=== PATIENT | female | born 1960 | race Caucasian/White ===

== ENCOUNTER 2023-05-13 16:04 | Outpatient (RCR) | payer BC, SELFPAY | END 2023-05-13 23:59 | disposition home or self-care (01) | LOC: RPT 16:04 | PROVIDERS: ATTENDING PHYSICIAN Obstetrics & Gynecology; FAMILY PHYSICIAN Family Medicine | DX: M62.89 Other specified disorders of muscle (principal); N81.6 Rectocele; R10.2 Pelvic and perineal pain; K59.00 Constipation, unspecified; Z73.6 Limitation of activities due to disability; N39.3 Stress incontinence (female) (male) | CPT/HCPCS: 97163; 97530 ==

== ENCOUNTER → 2023-06-18 11:31 | Outpatient (REF) | payer BC, SELFPAY | LOC: RAD 11:31 | PROVIDERS: ATTENDING PHYSICIAN Internal Medicine Endocrinology, Diabetes & Metabolism; FAMILY PHYSICIAN Family Medicine | DX: M81.0 Age-related osteoporosis without current pathological fracture (principal) | CPT/HCPCS: 77080 ==

== ENCOUNTER 2023-07-02 14:02 | Outpatient (RCR) | payer BC, SELFPAY | END 2023-07-02 23:59 | disposition home or self-care (01) | LOC: RPT 14:02 | PROVIDERS: ATTENDING PHYSICIAN Obstetrics & Gynecology; FAMILY PHYSICIAN Family Medicine | DX: M62.89 Other specified disorders of muscle (principal); N81.6 Rectocele; R10.2 Pelvic and perineal pain; K59.00 Constipation, unspecified; N39.3 Stress incontinence (female) (male); Z73.6 Limitation of activities due to disability | CPT/HCPCS: 97014; 97110; 97112; 97140; 97530 ==

== ENCOUNTER 2023-07-29 13:59 | Outpatient (RCR) | payer BC, SELFPAY | END 2023-07-29 23:59 | disposition home or self-care (01) | LOC: RPT 13:59 | PROVIDERS: ATTENDING PHYSICIAN Obstetrics & Gynecology; FAMILY PHYSICIAN Family Medicine | DX: M62.89 Other specified disorders of muscle (principal); N81.6 Rectocele; R10.2 Pelvic and perineal pain; K59.00 Constipation, unspecified; N39.3 Stress incontinence (female) (male); Z73.6 Limitation of activities due to disability | CPT/HCPCS: 97014; 97110; 97112; 97140; 97530 ==

== ENCOUNTER 2023-09-02 14:18 | Outpatient (RCR) | payer BC, SELFPAY | END 2023-09-02 23:59 | disposition home or self-care (01) | LOC: RPT 14:18 | PROVIDERS: ATTENDING PHYSICIAN Obstetrics & Gynecology; FAMILY PHYSICIAN Family Medicine | DX: M62.89 Other specified disorders of muscle (principal); N81.6 Rectocele; R10.2 Pelvic and perineal pain; K59.00 Constipation, unspecified; N39.3 Stress incontinence (female) (male); Z73.6 Limitation of activities due to disability | CPT/HCPCS: 97014; 97110; 97112; 97140; 97530 ==

== ENCOUNTER 2023-09-23 06:08 | Day surgery (SDC) | payer BC, SELFPAY ==
[2023-09-23 06:05] VITALS: BMI 21.9
[2023-09-23 06:18] VITALS: BMI 21.9
[2023-09-23 06:36] VITALS: BP 131/81
[2023-09-23] MEDS: Pyridium 200 MG PO (06:36)
[2023-09-23] MEDS: NORMOSOL-R 1000 IV (06:45)
--- NOTE | 2023-09-23 07:43 | SUR.OPER ---
Patients Botox not ordered on the order sheet. OR staff member found Dr. Delvalle and had him check off that he wanted Botox and when order was sent to pharmacy they stated that we did not have Botox in stock. Dr. Delvalle spoke with patient and he
told patient that surgery was cancelled. Deborah Director here in [facility] and was speaking with Greyson YEAGER and she is trying to find a solution to obtain Botox possibly from the surgery center. Patient waiting to hear the plan at the present time.
Mook went in and spoke with patient and told her that surgery will possibly still happen and trying to obtain Botox. Patient has call [place]ourt and has warm blankets. Patient comfortable and aware of the plan. Will monitor patient.
--- NOTE | 2023-09-23 08:36 | PTCARENOTE ---
Botox obtained. Patient taken before [facility] Cal[facility]. Awaiting the OR team to be ready for patient. Warm blankets brought to patient and patient ambulated to the bathroom with assistance.
[2023-09-23 09:45] VITALS: BP 114/64
[2023-09-23 09:57] VITALS: BP 120/67
[2023-09-23 10:00] VITALS: BP 113/72
[2023-09-23 10:15] VITALS: BP 130/77
[2023-09-23 10:30] VITALS: BP 145/71
== END 2023-09-23 10:44 | disposition home or self-care (01) ==
LOC: SDS 06:08
PROVIDERS: ATTENDING PHYSICIAN Obstetrics & Gynecology
DX: G24.8 Other dystonia (principal); R10.2 Pelvic and perineal pain; G89.29 Other chronic pain
CPT/HCPCS: 64646

== ENCOUNTER 2023-09-30 14:17 | Outpatient (RCR) | payer BC, SELFPAY | END 2023-09-30 23:59 | disposition home or self-care (01) | LOC: RPT 14:17 | PROVIDERS: ATTENDING PHYSICIAN Obstetrics & Gynecology; FAMILY PHYSICIAN Family Medicine | DX: M62.89 Other specified disorders of muscle (principal); N81.6 Rectocele; R10.2 Pelvic and perineal pain; K59.00 Constipation, unspecified; N39.3 Stress incontinence (female) (male); Z73.6 Limitation of activities due to disability | CPT/HCPCS: 97014; 97110; 97140; 97530 ==

== ENCOUNTER 2023-10-31 15:11 | Outpatient (RCR) | payer BC, SELFPAY | END 2023-10-31 23:59 | disposition home or self-care (01) | LOC: RPT 15:11 | PROVIDERS: ATTENDING PHYSICIAN Obstetrics & Gynecology; FAMILY PHYSICIAN Family Medicine | DX: M62.89 Other specified disorders of muscle (principal); N81.6 Rectocele; R10.2 Pelvic and perineal pain; K59.00 Constipation, unspecified; Z73.6 Limitation of activities due to disability; N39.3 Stress incontinence (female) (male) | CPT/HCPCS: 97110; 97140; 97530 ==

== ENCOUNTER 2023-12-02 14:09 | Outpatient (RCR) | payer BC, SELFPAY | END 2023-12-02 23:59 | disposition home or self-care (01) | LOC: RPT 14:09 | PROVIDERS: ATTENDING PHYSICIAN Obstetrics & Gynecology; FAMILY PHYSICIAN Family Medicine | DX: M62.89 Other specified disorders of muscle (principal); N81.6 Rectocele; R10.2 Pelvic and perineal pain; K59.00 Constipation, unspecified; Z73.6 Limitation of activities due to disability; N39.3 Stress incontinence (female) (male) | CPT/HCPCS: 97110; 97140; 97530 ==

== ENCOUNTER 2023-12-23 13:59 | Outpatient (RCR) | payer BC, SELFPAY | END 2023-12-23 23:59 | disposition home or self-care (01) | LOC: RPT 13:59 | PROVIDERS: ATTENDING PHYSICIAN Obstetrics & Gynecology; FAMILY PHYSICIAN Family Medicine | DX: M62.89 Other specified disorders of muscle (principal); N81.6 Rectocele; R10.2 Pelvic and perineal pain; K59.00 Constipation, unspecified; Z73.6 Limitation of activities due to disability; N39.3 Stress incontinence (female) (male) | CPT/HCPCS: 97110; 97112; 97140; 97530 ==

== ENCOUNTER 2024-01-23 12:58 | Outpatient (RCR) | payer BC, SELFPAY | END 2024-01-23 23:59 | disposition home or self-care (01) | LOC: RPT 12:58 | PROVIDERS: ATTENDING PHYSICIAN Obstetrics & Gynecology; FAMILY PHYSICIAN Family Medicine | DX: M62.89 Other specified disorders of muscle (principal); N81.6 Rectocele; R10.2 Pelvic and perineal pain; K59.00 Constipation, unspecified; Z73.6 Limitation of activities due to disability; N39.3 Stress incontinence (female) (male) | CPT/HCPCS: 97140; 97530 ==

== ENCOUNTER 2024-02-17 14:05 | Outpatient (RCR) | payer BC, SELFPAY | END 2024-02-17 23:59 | disposition home or self-care (01) | LOC: RPT 14:05 | PROVIDERS: ATTENDING PHYSICIAN Obstetrics & Gynecology; FAMILY PHYSICIAN Family Medicine | DX: M62.89 Other specified disorders of muscle (principal); N81.6 Rectocele; R10.2 Pelvic and perineal pain; K59.00 Constipation, unspecified; Z73.6 Limitation of activities due to disability; N39.3 Stress incontinence (female) (male) | CPT/HCPCS: 97140; 97530 ==

== ENCOUNTER 2024-03-23 14:05 | Outpatient (RCR) | payer BC, SELFPAY | END 2024-03-23 23:59 | disposition home or self-care (01) | LOC: RPT 14:05 | PROVIDERS: ATTENDING PHYSICIAN Obstetrics & Gynecology; FAMILY PHYSICIAN Family Medicine | DX: M62.89 Other specified disorders of muscle (principal); N81.6 Rectocele; R10.2 Pelvic and perineal pain; K59.00 Constipation, unspecified; Z73.6 Limitation of activities due to disability; N39.3 Stress incontinence (female) (male) | CPT/HCPCS: 97014; 97112; 97140; 97530 ==

== ENCOUNTER 2024-04-13 13:12 | Outpatient (RCR) | payer BC, SELFPAY | END 2024-04-13 23:59 | disposition home or self-care (01) | LOC: RPT 13:12 | PROVIDERS: ATTENDING PHYSICIAN Obstetrics & Gynecology; FAMILY PHYSICIAN Family Medicine | DX: M62.89 Other specified disorders of muscle (principal); N81.6 Rectocele; R10.2 Pelvic and perineal pain; K59.00 Constipation, unspecified; N39.3 Stress incontinence (female) (male); Z73.6 Limitation of activities due to disability | CPT/HCPCS: 97014; 97112; 97140; 97530 ==

== ENCOUNTER → 2024-05-13 12:04 | Outpatient (REF) | payer BC, SELFPAY | LOC: WDC 12:04 | PROVIDERS: ATTENDING PHYSICIAN Obstetrics & Gynecology Gynecology; FAMILY PHYSICIAN Family Medicine | DX: Z12.31 Encounter for screening mammogram for malignant neoplasm of breast (principal) | CPT/HCPCS: 77063; 77067 ==

== ENCOUNTER 2024-05-25 13:19 | Outpatient (RCR) | payer BC, SELFPAY | END 2024-05-25 23:59 | disposition home or self-care (01) | LOC: RPT 13:19 | PROVIDERS: ATTENDING PHYSICIAN Obstetrics & Gynecology; FAMILY PHYSICIAN Family Medicine | DX: M62.89 Other specified disorders of muscle (principal); N81.6 Rectocele; R10.2 Pelvic and perineal pain; K59.00 Constipation, unspecified; N39.3 Stress incontinence (female) (male); Z73.6 Limitation of activities due to disability | CPT/HCPCS: 97014; 97112; 97530 ==

== ENCOUNTER 2024-07-02 15:02 | Outpatient (RCR) | payer BC, SELFPAY | END 2024-07-02 23:59 | disposition home or self-care (01) | LOC: RPT 15:02 | PROVIDERS: ATTENDING PHYSICIAN Obstetrics & Gynecology; FAMILY PHYSICIAN Family Medicine | DX: M62.89 Other specified disorders of muscle (principal); N81.6 Rectocele; R10.2 Pelvic and perineal pain; K59.00 Constipation, unspecified; N39.3 Stress incontinence (female) (male); Z73.6 Limitation of activities due to disability | CPT/HCPCS: 97014; 97112; 97530 ==

== ENCOUNTER 2024-07-21 13:22 | Outpatient (RCR) | payer BC, SELFPAY | END 2024-07-21 23:59 | disposition home or self-care (01) | LOC: RPT 13:22 | PROVIDERS: ATTENDING PHYSICIAN Obstetrics & Gynecology; FAMILY PHYSICIAN Family Medicine | DX: M62.89 Other specified disorders of muscle (principal); N81.6 Rectocele; R10.2 Pelvic and perineal pain; K59.00 Constipation, unspecified; N39.3 Stress incontinence (female) (male); Z73.6 Limitation of activities due to disability | CPT/HCPCS: 97014; 97112; 97140; 97530 ==

== ENCOUNTER 2024-08-13 15:01 | Outpatient (RCR) | payer BC, SELFPAY | END 2024-08-13 23:59 | disposition home or self-care (01) | LOC: RPT 15:01 | PROVIDERS: ATTENDING PHYSICIAN Obstetrics & Gynecology; FAMILY PHYSICIAN Family Medicine | DX: M62.89 Other specified disorders of muscle (principal); N81.6 Rectocele; R10.2 Pelvic and perineal pain; K59.00 Constipation, unspecified; N39.3 Stress incontinence (female) (male); Z73.6 Limitation of activities due to disability | CPT/HCPCS: 97014; 97112; 97140; 97530 ==

== ENCOUNTER → 2024-08-25 16:33 | Outpatient (REF) | payer BC, SELFPAY | LOC: CLAB 16:33 | PROVIDERS: ATTENDING PHYSICIAN Otolaryngology | DX: J32.9 Chronic sinusitis, unspecified (principal) | CPT/HCPCS: 87070 ==

== ENCOUNTER 2024-09-17 15:27 | Outpatient (RCR) | payer BC, SELFPAY | END 2024-09-17 23:59 | disposition home or self-care (01) | LOC: RPT 15:27 | PROVIDERS: ATTENDING PHYSICIAN Obstetrics & Gynecology; FAMILY PHYSICIAN Family Medicine | DX: M62.89 Other specified disorders of muscle (principal); N81.6 Rectocele; R10.2 Pelvic and perineal pain; K59.00 Constipation, unspecified; N39.3 Stress incontinence (female) (male); Z73.6 Limitation of activities due to disability | CPT/HCPCS: 97014; 97112; 97140; 97530 ==

== ENCOUNTER 2024-10-15 15:09 | Outpatient (RCR) | payer BC, SELFPAY | END 2024-10-15 23:59 | disposition home or self-care (01) | LOC: RPT 15:09 | PROVIDERS: ATTENDING PHYSICIAN Obstetrics & Gynecology; FAMILY PHYSICIAN Family Medicine | DX: M62.89 Other specified disorders of muscle (principal); N81.6 Rectocele; R10.2 Pelvic and perineal pain; K59.00 Constipation, unspecified; Z73.6 Limitation of activities due to disability; N39.3 Stress incontinence (female) (male) | CPT/HCPCS: 97014; 97112; 97140; 97530 ==

== ENCOUNTER → 2024-10-29 11:49 | Outpatient (REF) | payer BC, SELFPAY | LOC: DHSLP 11:49 | PROVIDERS: ATTENDING PHYSICIAN Internal Medicine Critical Care Medicine; FAMILY PHYSICIAN Family Medicine | DX: G47.30 Sleep apnea, unspecified (principal); G47.8 Other sleep disorders; R06.83 Snoring | CPT/HCPCS: 95800 ==

== ENCOUNTER 2024-11-12 14:47 | Outpatient (RCR) | payer BC, SELFPAY | END 2024-11-12 23:59 | disposition home or self-care (01) | LOC: RPT 14:47 | PROVIDERS: ATTENDING PHYSICIAN Obstetrics & Gynecology; FAMILY PHYSICIAN Family Medicine | DX: M62.89 Other specified disorders of muscle (principal); N81.6 Rectocele; R10.2 Pelvic and perineal pain; K59.00 Constipation, unspecified; Z73.6 Limitation of activities due to disability; N39.3 Stress incontinence (female) (male) | CPT/HCPCS: 97014; 97112; 97140; 97530 ==

== ENCOUNTER 2025-01-05 11:03 | Outpatient (RCR) | payer BC, SELFPAY | END 2025-01-05 23:59 | disposition home or self-care (01) | LOC: RPT 11:03 | PROVIDERS: ATTENDING PHYSICIAN Obstetrics & Gynecology; FAMILY PHYSICIAN Family Medicine | DX: M62.89 Other specified disorders of muscle (principal); N81.6 Rectocele; R10.2 Pelvic and perineal pain; K59.00 Constipation, unspecified; Z73.6 Limitation of activities due to disability; N39.3 Stress incontinence (female) (male) | CPT/HCPCS: 97014; 97140; 97530 ==

== ENCOUNTER 2025-02-18 10:13 | Outpatient (RCR) | payer BC, SELFPAY | END 2025-02-18 23:59 | disposition home or self-care (01) | LOC: RPT 10:13 | PROVIDERS: ATTENDING PHYSICIAN Obstetrics & Gynecology; FAMILY PHYSICIAN Family Medicine | DX: M62.89 Other specified disorders of muscle (principal); N81.6 Rectocele; R10.2 Pelvic and perineal pain; K59.00 Constipation, unspecified; Z73.6 Limitation of activities due to disability; R10.20 Pelvic and perineal pain unspecified side; N39.3 Stress incontinence (female) (male) | CPT/HCPCS: 97014; 97112; 97140; 97530 ==

== ENCOUNTER 2025-03-21 12:15 | Outpatient (RCR) | payer BC, SELFPAY | END 2025-03-21 23:59 | disposition home or self-care (01) | LOC: RPT 12:15 | PROVIDERS: ATTENDING PHYSICIAN Obstetrics & Gynecology; FAMILY PHYSICIAN Family Medicine | DX: M62.89 Other specified disorders of muscle (principal); N81.6 Rectocele; K59.00 Constipation, unspecified; Z73.6 Limitation of activities due to disability; N39.3 Stress incontinence (female) (male); R10.20 Pelvic and perineal pain unspecified side; R10.2 Pelvic and perineal pain | CPT/HCPCS: 97014; 97112; 97140; 97530 ==

== ENCOUNTER 2025-04-26 09:39 | Outpatient (RCR) | payer BC, SELFPAY | END 2025-04-26 23:59 | disposition home or self-care (01) | LOC: RPT 09:39 | PROVIDERS: ATTENDING PHYSICIAN Obstetrics & Gynecology; FAMILY PHYSICIAN Family Medicine | DX: M62.89 Other specified disorders of muscle (principal); N81.6 Rectocele; K59.00 Constipation, unspecified; Z73.6 Limitation of activities due to disability; N39.3 Stress incontinence (female) (male); R10.20 Pelvic and perineal pain unspecified side; R10.2 Pelvic and perineal pain | CPT/HCPCS: 97014; 97112; 97140; 97530 ==